=== PATIENT | female | born 1950 | race Caucasian/White ===

== ENCOUNTER 2017-04-13 12:34 | Outpatient (CLI) ==
[2017-04-13 13:31] LABS: BILIRUBIN,URINE Negative (NEGATIVE); KETONES,URINE Negative (NEGATIVE); LEUKOCYTE ESTERASE ,URINE Negative (NEGATIVE); NITRITE,URINE Negative (NEGATIVE); PH,URINE 5.5 (5-9); PROTEIN,URINE Negative (NEGATIVE); URINE, BLOOD Negative (NEGATIVE)
[2017-04-13 13:43] LABS: EOSINOPHILS # (AUTO) 0.3 K/ul (0.0-0.7); EOSINOPHILS % (AUTO) 4.5 % (0.0-7.0); HEMATOCRIT 45.7 % (37.0-47.0); HEMOGLOBIN 15.1 g/dl (12.0-16.0); IMMATURE GRANULOCYTE % (AUTO) 0.3 % (0.0-5.0); LYMPHOCYTES # (AUTO) 2.2 K/uL (0.60-3.4); LYMPHOCYTES % (AUTO) 37.4 (10.0-50.0); MEAN CORPUSCULAR HEMOGLOBIN 29.7 pg (27.0-31.0); MEAN CORPUSCULAR VOLUME 89.8 fl (81.0-99.0); MONOCYTES # (AUTO) 0.4 K/uL (0.4-2.0); MONOCYTES % (AUTO) 7.1 (0-10); NEUTROPHILS # (AUTO) 2.9 K/ul (2.0-6.9); NEUTROPHILS % (AUTO) 50.7; PLATELET COUNT 202 10^3/uL (140-440); RED BLOOD COUNT 5.09 10^6/ul (4.20-5.40); WHITE BLOOD COUNT 5.77 K/ul (4.6-10.2)
[2017-04-13 13:44] LABS: ADD URINE MICROSCOPIC NO
[2017-04-13 13:48] LABS: OCCULT BLOOD INTERNAL QC 1 INTERNAL QC VALID; OCCULT BLOOD SAMPLE 1 NEGATIVE (NEGATIVE)
[2017-04-13 13:54] LABS: ALBUMIN/GLOBULIN RATIO 1.11; ANION GAP 11.9; BILIRUBIN,TOTAL 0.48 mg/dL (0.00-1.20); BUN/CREATININE RATIO 15.71; CALCIUM 9.8 mg/dL (8.2-10.2); CHOL/HDL RATIO 5.7 (4.5-5.5); CREATININE 0.7 mg/dL (0.60-1.30); POTASSIUM 3.9 mmol/L (3.5-5.10); TOTAL PROTEIN 7.6 g/dL (5.8-8.1)
[2017-04-13 14:04] LABS: OCCULT BLOOD INTERNAL QC 2 INTERNAL QC VALID; OCCULT BLOOD SAMPLE 2 NO SPECIMEN RECEIVED (NEGATIVE); OCCULT BLOOD SAMPLE 3 NO SPECIMEN RECEIVED (NEGATIVE)
[2017-04-13 14:05] LABS: OCCULT BLOOD INTERNAL QC 3 INTERNAL QC VALID
== END 2017-04-13 12:35 | disposition home or self-care (01) ==
LOC: LAB 12:34
PROVIDERS: ATTEND General Practice
DX: Z00.00 Encounter for general adult medical examination without abnormal findings (principal); I25.10 Atherosclerotic heart disease of native coronary artery without angina pectoris; E78.5 Hyperlipidemia, unspecified; K21.9 Gastro-esophageal reflux disease without esophagitis; H54.41 Blindness, right eye, normal vision left eye; R10.2 Pelvic and perineal pain; Z79.899 Other long term (current) drug therapy
CPT/HCPCS: 36415; 80053; 80061; 81001; 82272; 85025

== ENCOUNTER 2017-04-20 10:23 | Outpatient (CLI) ==
--- NOTE | 2017-04-20 11:14 | US ---
EXAM: Transvaginal ultrasound of the pelvis HISTORY: Pelvic, perineal pain TECHNIQUE: Wolff scale and color Doppler imaging of the pelvis was performed using transvaginal appr [facility]. FINDINGS: The uterus measures 6.3 cm in length, 2.3 cm AP, 3.7 cm transverse. The endometrium is m easuring 2.1 mm thick. A small amount of fluid is identified along the endometrium. There is a ech ogenic lesion seen along the endometrium projecting into the endometrial cavity. The lesion measure s 1.1 mm maximum. The right ovary measures 1.2 cm x 0.9 cm x 0.8 cm. Normal blood flow is identified within the right ovary. The left ovary was not seen on this examination. There is no free fluid seen within the pel vis. IMPRESSION: The endometrial thickness is normal and measures 2.1 mm. There is a small echogenic lesion seen along the endometrium and the findings likely represent a sma ll polyp measuring 1.1 mm maximum. No acute abnormalities are seen within the right ovary. The left ovary was not seen.
--- NOTE | 2017-04-20 11:29 | MAMMO ---
EXAM: Digital screening mammogram HISTORY: Screening COMPARISON: 09/08/2015 FINDINGS: Digital MLO and CC views of the right and left breast were performed. There are scatter ed fibroglandular densities. There are a few stable benign small nodular densities. There is no ev idence for mass, asymmetry, distortion, or suspicious calcifications in either breast. IMPRESSION: 1. No evidence of malignancy in the right or left breast. 2. Annual screening mammogram is recommended in one year. BIRADS category 2, benign
== END 2017-04-20 10:24 | disposition home or self-care (01) ==
LOC: RAD 10:23
PROVIDERS: ATTEND General Practice
DX: Z12.31 Encounter for screening mammogram for malignant neoplasm of breast (principal); R10.2 Pelvic and perineal pain

== ENCOUNTER 2018-05-02 12:44 | Outpatient (CLI) | END 2018-05-02 12:45 | disposition home or self-care (01) | LOC: FCC-LAB 12:44 | PROVIDERS: ATTEND General Practice | DX: Z79.899 Other long term (current) drug therapy (principal) | CPT/HCPCS: 36415; 80053; 80061; 81001; 85025 ==

== ENCOUNTER 2018-05-08 12:19 | Outpatient (CLI) ==
--- NOTE | 2018-05-10 09:03 | MAMMO ---
EXAM: Bilateral digital screening mammogram (2-D and 3-D) History: Screening Comparison: Bilateral mammogram 04/20/2017 Findings: MLO and CC views of bilateral breasts demonstrate scattered fibroglandular breast parenchy ma. CAD was reviewed by the radiologist. Tomosynthesis was performed. There are no dominant masses , no suspicious microcalcifications and no architectural distortions Impression: Stable negative mammogram. Recommend followup routine screening mammography in 1 year. BIRADS 1
== END 2018-05-08 12:20 | disposition home or self-care (01) ==
LOC: RAD 12:19
PROVIDERS: ATTEND General Practice
DX: Z12.31 Encounter for screening mammogram for malignant neoplasm of breast (principal); Z80.3 Family history of malignant neoplasm of breast
CPT/HCPCS: 77067

== ENCOUNTER 2018-11-01 08:10 | Outpatient (CLI) | END 2018-11-01 08:11 | disposition home or self-care (01) | LOC: RHC-LAB 08:10 | PROVIDERS: ATTEND General Practice | DX: I48.91 Unspecified atrial fibrillation (principal); Z79.899 Other long term (current) drug therapy | CPT/HCPCS: 36415; 80053; 80061; 81001; 85025 ==